=== PATIENT | male | born 1940 | race Caucasian/White ===

== ENCOUNTER 2017-02-14 14:26 | Observation (INO) ==
[2017-02-14 15:01] LABS: Basophils # 0.1 10*3/uL (0.0-0.2); Basophils % 0.9 % (0.0-0.8); Eosinophils # 0.3 10*3/uL (0.0-0.87); Eosinophils % 5.2 % (0.00-10.9); Hemoglobin 13.3 GM/DL (14.0-18.0); Immature Granulocytes % 0.3 %; Immature Granulocytes Absolute 0.02 #; Mean Corpuscular Hemoglobin 35 PG (27-34); Mean Corpuscular Volume 99.2 FL (87-102); Monocytes # 0.6 10*3/uL (0.11-0.8); Monocytes % 8.7 % (1.7-12.7); Neutrophils # 3.3 10*3/uL (1.4-7.4); Neutrophils % 52.9 % (38.7-73.9); Platelet Count 151 T/CUMM (130-400); Red Blood Count 3.83 MC/CUMM (3.8-5.5); Red Cell Distribution Width 13.1 % (9.3-17.3); White Blood Count 6.3 T/CUMM (4-12)
[2017-02-14 15:35] LABS: Blood Urea Nitrogen 21 MG/DL (7-18); Glucose 255 MG/DL (74-106); Osmolality,Calculated 284.8 MOS/KG (273-304); Potassium 4.3 MMOL/L (3.5-5.1); Sodium 137 MMOL/L (136-145); Troponin I Only < 0.015 NG/ML (0.00-0.045)
[2017-02-14] MEDS ORDERED: ASPIRIN EC 325 MG TABLET PO STA (16:18)
[2017-02-14] MEDS ORDERED: MORPHINE 2 MG/1 ML SYRINGE IV PRN (16:32)
[2017-02-14] MEDS ORDERED: ONDANSETRON 4 MG/2 ML VIAL IV PRN (16:32)
[2017-02-14] MEDS ORDERED: GLUCAGON 1 MG VIAL IM PRN (16:32)
[2017-02-14] MEDS ORDERED: ACETAMINOPHEN 325 MG TABLET PO PRN (16:32)
[2017-02-14] MEDS ORDERED: DEXTROSE 50% 25 GM/50 ML VIAL IV PRN (16:32)
[2017-02-14] MEDS ORDERED: ASPIRIN 325 MG TABLET ONE (16:39)
[2017-02-14] MEDS ORDERED: NITROGLYCERIN SL 0.4 MG TABLET SL PRN (17:05)
[2017-02-14] MEDS ORDERED: MAGNESIUM OXIDE 400 MG TABLET PO SCH (21:00)
[2017-02-14] MEDS ORDERED: FINASTERIDE 5 MG TABLET PO SCH (21:00)
[2017-02-14] MEDS ORDERED: PREGABALIN 75 MG CAPSULE PO SCH (21:00)
[2017-02-14] MEDS ORDERED: TAMSULOSIN 0.4 MG CAPSULE PO SCH (21:00)
[2017-02-14] MEDS ORDERED: SIMVASTATIN 20 MG TABLET PO SCH (21:00)
[2017-02-14] MEDS: PANTOPRAZOLE 40 MG TABLET PO SCH (21:37)
[2017-02-14] MEDS: DABIGATRAN 75 MG CAPSULE PO SCH (21:37)
[2017-02-14] MEDS: INSULIN REGULAR 100 UNIT/ML SUBCUT SCH (21:38)
[2017-02-14] MEDS: SODIUM CHLORIDE 0.9% 1,000 ML IV SCH (21:39)
[2017-02-15 04:58] LABS: Basophils % 0.6 % (0.0-0.8); Eosinophils # 0.5 10*3/uL (0.0-0.87); Hematocrit 35.8 VOL% (42.0-52.0); Hemoglobin 12.3 GM/DL (14.0-18.0); Immature Granulocytes % 0.3 %; Immature Granulocytes Absolute 0.02 #; Lymphocytes # 2.6 10*3/uL (1.4-4.0); Lymphocytes % 39.9 % (21.2-54.2); Mean Corpuscular HGB Conc 34.4 GM/DL (32-36); Mean Corpuscular Hemoglobin 34 PG (27-34); Mean Corpuscular Volume 99.2 FL (87-102); Mean Platelet Volume 11.5 FL (9.6-12.0); Monocytes # 0.6 10*3/uL (0.11-0.8); Monocytes % 9.7 % (1.7-12.7); Neutrophils # 2.7 10*3/uL (1.4-7.4); Neutrophils % 42.5 % (38.7-73.9); Platelet Count 150 T/CUMM (130-400); Red Blood Count 3.61 MC/CUMM (3.8-5.5); Red Cell Distribution Width 13.1 % (9.3-17.3); White Blood Count 6.4 T/CUMM (4-12)
[2017-02-15 05:17] LABS: Partial Thromboplastin Time 26.3 SECS (0-40)
[2017-02-15 05:34] LABS: Calcium 8.2 MG/DL (8.5-10.1); Magnesium 2.1 MG/DL (1.8-2.4); Osmolality,Calculated 288.1 MOS/KG (273-304); Potassium 3.9 MMOL/L (3.5-5.1); Risk Ratio 3.51; Thyroid Stimulating Hormone 1.05 uIU/ml (0.358-3.74); VLDL CHOLESTEROL 63.6 MG/DL
[2017-02-15] MEDS: SODIUM CHLORIDE 0.9% 1,000 ML IV SCH (05:50)
[2017-02-15] MEDS ORDERED: CALCIUM (CARBONATE) 500 MG TABLET PO SCH (09:00)
[2017-02-15] MEDS ORDERED: FEXOFENADINE 180 MG TABLET PO SCH (09:00)
[2017-02-15] MEDS ORDERED: BUMETANIDE 1 MG TABLET PO SCH (09:00)
[2017-02-15] MEDS ORDERED: POTASSIUM CHLORIDE 10 MEQ TABLET PO SCH (09:00)
[2017-02-15] MEDS ORDERED: PSYLLIUM POWDER 3.7 GM/PACK PO SCH (09:00)
[2017-02-15] MEDS ORDERED: PANTOPRAZOLE 40 MG TABLET PO SCH (09:00)
[2017-02-15] MEDS ORDERED: MAGNESIUM OXIDE 400 MG TABLET PO SCH (09:00)
[2017-02-15] MEDS ORDERED: ASPIRIN EC 81 MG TABLET PO SCH (09:00)
[2017-02-15] MEDS: DABIGATRAN 75 MG CAPSULE PO SCH (10:30)
[2017-02-15] MEDS: PANTOPRAZOLE 40 MG TABLET PO SCH (10:32)
[2017-02-15] MEDS: INSULIN REGULAR 100 UNIT/ML SUBCUT SCH ×3 (10:32→17:57)
[2017-02-15 16:37] VITALS: BP 102/61
[2017-02-15] MEDS ORDERED: ALUMINUM/MAGNES/SIMETH MAX STR 30 ML UDCUP PO PRN (16:40)
[2017-02-15] MEDS ORDERED: OMEGA 3 ACID ETHYL ESTERS 1 GM CAPSULE PO SCH (21:00)
[2017-02-16] MEDS ORDERED: ISOSORBIDE MONONITRATE 30 MG TABLET PO SCH (09:00)
== END 2017-02-15 18:25 | disposition home or self-care (01) ==
LOC: N.EDINP 14:26 → N.ED 14:26 → N.TELES 17:11
PROVIDERS: ADMIT Hospitalist; ATTEND Hospitalist

== ENCOUNTER 2017-02-28 16:05 | Observation (INO) ==
[2017-02-28] MEDS ORDERED: ASPIRIN 325 MG TABLET PO STA (16:50)
[2017-02-28] MEDS ORDERED: SODIUM CHLORIDE 0.9% 500 ML IV STA (16:50)
[2017-02-28] MEDS ORDERED: ASPIRIN 325 MG TABLET ONE (17:15)
[2017-02-28 17:21] LABS: Basophils # 0.1 10*3/uL (0.0-0.2); Basophils % 0.8 % (0.0-0.8); Eosinophils # 0.4 10*3/uL (0.0-0.87); Eosinophils % 7.2 % (0.00-10.9); Hematocrit 37.5 VOL% (42.0-52.0); Hemoglobin 12.9 GM/DL (14.0-18.0); Immature Granulocytes % 0.2 %; Immature Granulocytes Absolute 0.01 #; Lymphocytes # 2.3 10*3/uL (1.4-4.0); Lymphocytes % 38.6 % (21.2-54.2); Mean Corpuscular HGB Conc 34.4 GM/DL (32-36); Mean Corpuscular Hemoglobin 35 PG (27-34); Mean Corpuscular Volume 100.3 FL (87-102); Mean Platelet Volume 10.6 FL (9.6-12.0); Monocytes # 0.6 10*3/uL (0.11-0.8); Monocytes % 9.3 % (1.7-12.7); Neutrophils # 2.6 10*3/uL (1.4-7.4); Neutrophils % 43.9 % (38.7-73.9); Platelet Count 162 T/CUMM (130-400); Red Blood Count 3.74 MC/CUMM (3.8-5.5); Red Cell Distribution Width 13.9 % (9.3-17.3)
[2017-02-28 17:30] LABS: INR 1.1; PT Patient Result 11.6 SECS; Partial Thromboplastin Time 30.1 SECS (0-40)
[2017-02-28 17:43] LABS: Apearance,Urine CLEAR (Clear); Bilirubin,Urine Negative (Negative); Blood, Urine Negative (Negative); Glucose,Urine (UA) Negative (Negative); Hyaline Casts,Urine 9 /LPF (0-3); Ketones,Urine Negative (Negative); Mucus,Urine Occasional /LPF (Occasional); Nitrite,Urine Negative (Negative); Protein,Urine Negative; RBC,Urine <1 /HPF (0-4); Urine Color Yellow (Yellow); Urine Specific Gravity 1.009 (1.001-1.035); Urine Urobilinogen < 2.0 EU/DL (0.2-1.0); WBC,Urine <1 /HPF (0-6)
[2017-02-28 17:52] LABS: Barbiturates Screen,Urine Negative (Negative); Benzodiazepines Screen,Urine Negative (Negative); Cannabinoid Screen,Urine Negative (Negative); Opiate Screen,Urine Negative (Negative); Phencyclidine Screen,Urine Negative (Negative)
[2017-02-28 18:00] LABS: Alanine Aminotransferase 22 U/L (16-61); Albumin 3.4 G/DL (3.4-5.0); Alkaline Phosphatase 56 U/L (45-117); Aspartate Amino Transferase 20 U/L (0-37); Blood Urea Nitrogen 17 MG/DL (7-18); Calcium 8.9 MG/DL (8.5-10.1); Glucose 123 MG/DL (74-106); Potassium 4.3 MMOL/L (3.5-5.1); Sodium 143 MMOL/L (136-145); Total Protein 6.4 G/DL (6.4-8.3); Troponin I Only < 0.015 NG/ML (0.00-0.045)
[2017-02-28] MEDS ORDERED: ONDANSETRON 4 MG/2 ML VIAL IV PRN (18:41)
[2017-02-28] MEDS ORDERED: GLUCAGON 1 MG VIAL IM PRN (18:41)
[2017-02-28] MEDS ORDERED: DEXTROSE 50% 25 GM/50 ML VIAL IV PRN (18:41)
[2017-02-28] MEDS ORDERED: ALUMINUM/MAGNES/SIMETH MAX STR 30 ML UDCUP PO PRN (18:45)
[2017-02-28] MEDS ORDERED: traMADol 50 MG TABLET PO PRN (18:45)
[2017-02-28] MEDS ORDERED: NITROGLYCERIN SL 0.4 MG TABLET SL PRN (18:45)
[2017-02-28] MEDS: PREGABALIN 75 MG CAPSULE PO SCH (21:08)
[2017-02-28] MEDS: MAGNESIUM OXIDE 400 MG TABLET PO SCH (21:08)
[2017-02-28] MEDS: DABIGATRAN 75 MG CAPSULE PO SCH (21:08)
[2017-02-28] MEDS: FINASTERIDE 5 MG TABLET PO SCH (21:08)
[2017-02-28] MEDS: TAMSULOSIN 0.4 MG CAPSULE PO SCH (21:08)
[2017-02-28] MEDS: SIMVASTATIN 20 MG TABLET PO SCH (21:08)
[2017-02-28] MEDS: INSULIN REGULAR 100 UNIT/ML SUBCUT SCH (21:09)
[2017-02-28] MEDS: INSULIN NPH/REGULAR 70/30 100 UNIT/ML SUBCUT SCH (21:09)
[2017-02-28] MEDS: PANTOPRAZOLE 40 MG TABLET PO SCH (21:09)
[2017-02-28] MEDS: OMEGA 3 ACID ETHYL ESTERS 1 GM CAPSULE PO SCH (21:15)
[2017-02-28] MEDS: SODIUM CHLORIDE 0.9% 1,000 ML IV SCH (21:17)
[2017-03-01 04:43] LABS: Calcium 8.3 MG/DL (8.5-10.1); Osmolality,Calculated 290.6 MOS/KG (273-304); Potassium 4.4 MMOL/L (3.5-5.1); Risk Ratio 2.74
[2017-03-01] MEDS: SODIUM CHLORIDE 0.9% 1,000 ML IV SCH ×2 (04:53→17:21)
[2017-03-01] MEDS: INSULIN REGULAR 100 UNIT/ML SUBCUT SCH ×4 (09:03→21:26)
[2017-03-01] MEDS: MULTIVITAMIN (CENTRUM) TABLET PO SCH (09:40)
[2017-03-01] MEDS: ASPIRIN EC 81 MG TABLET PO SCH (09:40)
[2017-03-01] MEDS: ISOSORBIDE MONONITRATE 30 MG TABLET PO SCH (09:40)
[2017-03-01] MEDS: OMEGA 3 ACID ETHYL ESTERS 1 GM CAPSULE PO SCH ×2 (09:40→21:25)
[2017-03-01] MEDS: PREGABALIN 75 MG CAPSULE PO SCH ×2 (09:40→21:25)
[2017-03-01] MEDS: FEXOFENADINE 180 MG TABLET PO SCH (09:40)
[2017-03-01] MEDS: BUMETANIDE 1 MG TABLET PO SCH (09:40)
[2017-03-01] MEDS: POTASSIUM CHLORIDE 10 MEQ TABLET PO SCH (09:41)
[2017-03-01] MEDS: MAGNESIUM OXIDE 400 MG TABLET PO SCH ×2 (09:41→21:25)
[2017-03-01] MEDS: DABIGATRAN 75 MG CAPSULE PO SCH (09:41)
[2017-03-01] MEDS: CALCIUM (CARBONATE) 500 MG TABLET PO SCH (09:42)
[2017-03-01] MEDS: PSYLLIUM POWDER 3.7 GM/PACK PO SCH (09:42)
[2017-03-01] MEDS: INSULIN NPH/REGULAR 70/30 100 UNIT/ML SUBCUT SCH ×2 (09:42→18:19)
[2017-03-01] MEDS: PANTOPRAZOLE 40 MG TABLET PO SCH ×2 (10:07→21:28)
[2017-03-01] MEDS: FINASTERIDE 5 MG TABLET PO SCH (21:25)
[2017-03-01] MEDS: DABIGATRAN 150 MG CAPSULE PO SCH (21:26)
[2017-03-01] MEDS: SIMVASTATIN 20 MG TABLET PO SCH (21:26)
[2017-03-01] MEDS: TAMSULOSIN 0.4 MG CAPSULE PO SCH (21:26)
[2017-03-02] MEDS: CALCIUM (CARBONATE) 500 MG TABLET PO SCH (09:09)
[2017-03-02] MEDS: DABIGATRAN 150 MG CAPSULE PO SCH (09:09)
[2017-03-02] MEDS: ISOSORBIDE MONONITRATE 30 MG TABLET PO SCH (09:09)
[2017-03-02] MEDS: FEXOFENADINE 180 MG TABLET PO SCH (09:09)
[2017-03-02] MEDS: POTASSIUM CHLORIDE 10 MEQ TABLET PO SCH (09:10)
[2017-03-02] MEDS: PSYLLIUM POWDER 3.7 GM/PACK PO SCH (09:10)
[2017-03-02] MEDS: OMEGA 3 ACID ETHYL ESTERS 1 GM CAPSULE PO SCH (09:10)
[2017-03-02] MEDS: ASPIRIN EC 81 MG TABLET PO SCH (09:10)
[2017-03-02] MEDS: MULTIVITAMIN (CENTRUM) TABLET PO SCH (09:10)
[2017-03-02] MEDS: PREGABALIN 75 MG CAPSULE PO SCH (09:10)
[2017-03-02] MEDS: BUMETANIDE 1 MG TABLET PO SCH (09:10)
[2017-03-02] MEDS: MAGNESIUM OXIDE 400 MG TABLET PO SCH (09:10)
[2017-03-02] MEDS: INSULIN REGULAR 100 UNIT/ML SUBCUT SCH ×2 (09:10→12:56)
[2017-03-02] MEDS: INSULIN NPH/REGULAR 70/30 100 UNIT/ML SUBCUT SCH (09:11)
[2017-03-02] MEDS: PANTOPRAZOLE 40 MG TABLET PO SCH (09:48)
[2017-03-02 11:34] VITALS: BP 116/67
== END 2017-03-02 13:12 | disposition home or self-care (01) ==
LOC: N.ED 16:05 → N.EDINP 16:05 → SUATTDRO 18:41 → N.TELES 19:44
PROVIDERS: ADMIT Pediatrics; ATTEND Internal Medicine

== ENCOUNTER 2017-12-13 12:51 | Observation (INO) ==
[2017-12-13] MEDS ORDERED: ONDANSETRON 4 MG/2 ML VIAL IV PRN ×2 (13:04→15:51)
[2017-12-13] MEDS ORDERED: MORPHINE 4 MG/1 ML VIAL IV PRN (13:04)
[2017-12-13] MEDS ORDERED: ASPIRIN 325 MG TABLET PO STA (13:04)
[2017-12-13] MEDS ORDERED: ENOXAPARIN 100 MG/ML SYRINGE SUBCUT STA (13:04)
[2017-12-13] MEDS ORDERED: SODIUM CHLORIDE 0.9% 500 ML IV STA (13:10)
[2017-12-13 13:43] LABS: Basophils % 0.4 % (0.0-0.8); Eosinophils # 0.1 10*3/uL (0.0-0.87); Eosinophils % 1.4 % (0.00-10.9); Hematocrit 40.1 VOL% (42.0-52.0); Hemoglobin 13.5 GM/DL (14.0-18.0); Immature Granulocytes % 0.1 %; Immature Granulocytes Absolute 0.01 #; Lymphocytes # 2.3 10*3/uL (1.4-4.0); Lymphocytes % 30.5 % (21.2-54.2); Mean Corpuscular HGB Conc 33.7 GM/DL (32-36); Mean Corpuscular Hemoglobin 34 PG (27-34); Mean Corpuscular Volume 100.5 FL (87-102); Mean Platelet Volume 11.2 FL (9.6-12.0); Monocytes # 0.7 10*3/uL (0.11-0.8); Monocytes % 9.6 % (1.7-12.7); Neutrophils # 4.5 10*3/uL (1.4-7.4); Platelet Count 142 T/CUMM (130-400); Red Blood Count 3.99 MC/CUMM (3.8-5.5); Red Cell Distribution Width 13.3 % (9.3-17.3); White Blood Count 7.7 T/CUMM (4-12)
[2017-12-13 13:54] LABS: INR 1.2; PT Patient Result 12.5 SECS; Partial Thromboplastin Time 34.2 SECS (0-40)
[2017-12-13 14:08] LABS: Albumin 3.8 G/DL (3.4-5.0); Bilirubin,Total 0.7 MG/DL (0.2-1.0); Calcium 9.2 MG/DL (8.5-10.1); Osmolality,Calculated 287.8 MOS/KG (273-304); Potassium 4.2 MMOL/L (3.5-5.1); Total Protein 6.9 G/DL (6.4-8.3)
[2017-12-13] MEDS ORDERED: DEXTROSE 50% 25 GM/50 ML VIAL IV PRN (15:51)
[2017-12-13] MEDS ORDERED: GLUCAGON 1 MG VIAL IM PRN (15:51)
[2017-12-13] MEDS ORDERED: ACETAMINOPHEN 325 MG TABLET PO PRN (15:51)
[2017-12-13] MEDS: methylPREDNISolone SOD SUC 40 MG/1 ML VIAL IV SCH (16:15)
[2017-12-13] MEDS: SODIUM CHLORIDE 0.9% 1,000 ML IV SCH (16:39)
[2017-12-13] MEDS: INSULIN LISPRO 100 UNIT/ML SUBCUT SCH ×2 (16:39→21:21)
[2017-12-13] MEDS ORDERED: traMADol 50 MG TABLET PO PRN (17:00)
[2017-12-13] MEDS ORDERED: NITROGLYCERIN SL 0.4 MG TABLET SL PRN (17:00)
[2017-12-13] MEDS ORDERED: ALUMINUM/MAGNES/SIMETH MAX STR 30 ML UDCUP PO PRN (17:00)
[2017-12-13] MEDS: ACETAMINOPHEN 325 MG TABLET PO SCH ×2 (18:56→21:21)
[2017-12-13] MEDS ORDERED: MAGNESIUM OXIDE 400 MG TABLET PO SCH (21:00)
[2017-12-13] MEDS ORDERED: TAMSULOSIN 0.4 MG CAPSULE PO SCH (21:00)
[2017-12-13] MEDS ORDERED: INSULIN NPH/REGULAR 70/30 100 UNIT/ML SUBCUT SCH (21:00)
[2017-12-13] MEDS ORDERED: FINASTERIDE 5 MG TABLET PO SCH (21:00)
[2017-12-13] MEDS ORDERED: SIMVASTATIN 20 MG TABLET PO SCH (21:00)
[2017-12-13] MEDS: OMEGA 3 ACID ETHYL ESTERS 1 GM CAPSULE PO SCH (21:20)
[2017-12-13] MEDS: DOCUSATE SODIUM 100 MG CAPSULE PO SCH (21:20)
[2017-12-13] MEDS: PANTOPRAZOLE 40 MG TABLET PO SCH (21:21)
[2017-12-14] MEDS: methylPREDNISolone SOD SUC 40 MG/1 ML VIAL IV SCH (04:02)
[2017-12-14 04:17] LABS: Troponin I < 0.015 NG/ML (0.00-0.045)
[2017-12-14] MEDS: SODIUM CHLORIDE 0.9% 1,000 ML IV SCH (05:54)
[2017-12-14] MEDS: OMEGA 3 ACID ETHYL ESTERS 1 GM CAPSULE PO SCH (08:34)
[2017-12-14] MEDS: DOCUSATE SODIUM 100 MG CAPSULE PO SCH (08:35)
[2017-12-14] MEDS: INSULIN LISPRO 100 UNIT/ML SUBCUT SCH ×2 (08:36→11:51)
[2017-12-14] MEDS: ACETAMINOPHEN 325 MG TABLET PO SCH (08:36)
[2017-12-14] MEDS: PSYLLIUM POWDER 3.7 GM/PACK PO SCH ×2 (08:36→08:43)
[2017-12-14] MEDS ORDERED: FEXOFENADINE 180 MG TABLET PO SCH (09:00)
[2017-12-14] MEDS ORDERED: PANTOPRAZOLE 40 MG TABLET PO SCH (09:00)
[2017-12-14] MEDS ORDERED: POTASSIUM CHLORIDE 10 MEQ TABLET PO SCH (09:00)
[2017-12-14] MEDS ORDERED: MAGNESIUM OXIDE 400 MG TABLET PO SCH (09:00)
[2017-12-14] MEDS ORDERED: INSULIN NPH/REGULAR 70/30 100 UNIT/ML SUBCUT SCH (09:00)
[2017-12-14] MEDS ORDERED: PREGABALIN 75 MG CAPSULE PO SCH (09:00)
[2017-12-14] MEDS ORDERED: MULTIVITAMIN (CENTRUM) TABLET PO SCH (09:00)
[2017-12-14] MEDS ORDERED: ISOSORBIDE MONONITRATE 30 MG TABLET PO SCH (09:00)
[2017-12-14] MEDS ORDERED: BUMETANIDE 1 MG TABLET PO SCH (09:00)
[2017-12-14] MEDS ORDERED: CALCIUM (CARBONATE) 500 MG TABLET PO SCH (09:00)
[2017-12-14] MEDS ORDERED: ASPIRIN EC 81 MG TABLET PO SCH (09:00)
[2017-12-14] MEDS ORDERED: DABIGATRAN 75 MG CAPSULE PO SCH (09:00)
[2017-12-14] MEDS: PANTOPRAZOLE 40 MG TABLET PO SCH (09:09)
[2017-12-14 09:13] LABS: Calcium 8.4 MG/DL (8.5-10.1); Osmolality,Calculated 293.4 MOS/KG (273-304); Potassium 4.6 MMOL/L (3.5-5.1)
[2017-12-14 12:03] VITALS: BP 91/50
== END 2017-12-14 15:38 | disposition home or self-care (01) ==
LOC: EDUNIT# → EDBD → N.EDINP 12:51 → N.ED 12:51 → N.TELES 15:15
PROVIDERS: ADMIT Family Medicine; ATTEND Family Medicine

== ENCOUNTER 2018-01-06 14:33 | Inpatient (IN) ==
[2018-01-06] MEDS ORDERED: GLUCAGON 1 MG VIAL IM PRN (15:07)
[2018-01-06] MEDS ORDERED: ACETAMINOPHEN 325 MG TABLET PO PRN (15:07)
[2018-01-06] MEDS ORDERED: DEXTROSE 50% 25 GM/50 ML VIAL IV PRN (15:07)
[2018-01-06] MEDS ORDERED: ONDANSETRON 4 MG/2 ML VIAL IV PRN (15:07)
[2018-01-06 16:50] LABS: Basophils % 0.4 % (0.0-0.8); Eosinophils # 0.4 10*3/uL (0.0-0.87); Eosinophils % 4.7 % (0.00-10.9); Hematocrit 43.2 VOL% (42.0-52.0); Hemoglobin 14.1 GM/DL (14.0-18.0); Immature Granulocytes % 0.5 %; Immature Granulocytes Absolute 0.04 #; Lymphocytes # 1.9 10*3/uL (1.4-4.0); Lymphocytes % 24.8 % (21.2-54.2); Mean Corpuscular HGB Conc 32.6 GM/DL (32-36); Mean Corpuscular Hemoglobin 34 PG (27-34); Mean Corpuscular Volume 103.3 FL (87-102); Monocytes # 0.8 10*3/uL (0.11-0.8); Monocytes % 10.1 % (1.7-12.7); Neutrophils # 4.6 10*3/uL (1.4-7.4); Neutrophils % 59.5 % (38.7-73.9); Platelet Count 156 T/CUMM (130-400); Red Blood Count 4.18 MC/CUMM (3.8-5.5); Red Cell Distribution Width 13.5 % (9.3-17.3); White Blood Count 7.7 T/CUMM (4-12)
[2018-01-06] MEDS: methylPREDNISolone SOD SUC 40 MG/1 ML VIAL IV SCH (17:12)
[2018-01-06] MEDS: SODIUM CHLORIDE 0.9% 1,000 ML IV SCH (17:12)
[2018-01-06 17:18] LABS: Albumin 3.1 G/DL (3.4-5.0); Bilirubin,Total 0.4 MG/DL (0.2-1.0); Calcium 8.7 MG/DL (8.5-10.1); Osmolality,Calculated 283.5 MOS/KG (273-304); Total Protein 6.5 G/DL (6.4-8.3)
[2018-01-06 17:20] LABS: Troponin I < 0.015 NG/ML (0.00-0.045)
[2018-01-06] MEDS: INSULIN LISPRO 100 UNIT/ML SUBCUT SCH ×2 (17:21→21:28)
[2018-01-06] MEDS: ALBUTEROL/IPRATROPIUM 3 ML NEB RESP TX SCH ×2 (19:23→23:23)
[2018-01-06 20:07] LABS: Apearance,Urine CLEAR (Clear); Bilirubin,Urine Negative (Negative); Blood, Urine Negative (Negative); Glucose,Urine (UA) Negative (Negative); Ketones,Urine Negative (Negative); Mucus,Urine Occasional /LPF (Occasional); Nitrite,Urine Negative (Negative); Protein,Urine Negative; Urine Color Straw (Yellow); Urine Specific Gravity 1.005 (1.001-1.035); Urine Urobilinogen < 2.0 EU/DL (0.2-1.0); WBC,Urine <1 /HPF (0-6)
[2018-01-06] MEDS: DABIGATRAN 150 MG CAPSULE PO SCH (21:27)
[2018-01-06] MEDS: PREGABALIN 75 MG CAPSULE PO SCH (21:27)
[2018-01-06] MEDS: DOCUSATE SODIUM 100 MG CAPSULE PO SCH (21:27)
[2018-01-06] MEDS: SIMVASTATIN 20 MG TABLET PO SCH (21:28)
[2018-01-07] MEDS ORDERED: ALBUTEROL/IPRATROPIUM 3 ML NEB RESP TX ONE (00:34)
[2018-01-07] MEDS: BENZONATATE 100 MG CAPSULE PO PRN (00:38)
[2018-01-07] MEDS: ALBUTEROL/IPRATROPIUM 3 ML NEB RESP TX SCH ×5 (03:07→20:38)
[2018-01-07] MEDS: NITROGLYCERIN SL 0.4 MG TABLET SL PRN ×2 (04:15→04:20)
[2018-01-07] MEDS: methylPREDNISolone SOD SUC 40 MG/1 ML VIAL IV SCH ×2 (04:24→16:00)
[2018-01-07 04:33] LABS: Basophils % 0.1 % (0.0-0.8); Hematocrit 41.9 VOL% (42.0-52.0); Hemoglobin 13.7 GM/DL (14.0-18.0); Immature Granulocytes Absolute 0.09 #; Lymphocytes # 0.7 10*3/uL (1.4-4.0); Lymphocytes % 7.4 % (21.2-54.2); Mean Corpuscular HGB Conc 32.7 GM/DL (32-36); Mean Corpuscular Hemoglobin 34 PG (27-34); Mean Corpuscular Volume 102.9 FL (87-102); Mean Platelet Volume 11.4 FL (9.6-12.0); Monocytes # 0.3 10*3/uL (0.11-0.8); Monocytes % 3.6 % (1.7-12.7); Neutrophils # 8.3 10*3/uL (1.4-7.4); Neutrophils % 87.9 % (38.7-73.9); Platelet Count 161 T/CUMM (130-400); Red Blood Count 4.07 MC/CUMM (3.8-5.5); Red Cell Distribution Width 13.5 % (9.3-17.3); White Blood Count 9.4 T/CUMM (4-12)
[2018-01-07] MEDS: SODIUM CHLORIDE 0.9% 1,000 ML IV SCH ×3 (05:00→18:53)
[2018-01-07 08:59] LABS: Calcium 8.7 MG/DL (8.5-10.1); Osmolality,Calculated 295.7 MOS/KG (273-304); Potassium 4.1 MMOL/L (3.5-5.1)
[2018-01-07] MEDS ORDERED: BUMETANIDE 1 MG TABLET PO SCH (09:00)
[2018-01-07] MEDS ORDERED: DILTIAZEM 50 MG/10 ML VIAL IV ONE (09:05)
[2018-01-07] MEDS ORDERED: DILTIAZEM 25 MG/5 ML VIAL IV ONE (09:14)
[2018-01-07] MEDS: ASPIRIN EC 81 MG TABLET PO SCH (09:26)
[2018-01-07] MEDS: ISOSORBIDE MONONITRATE 30 MG TABLET PO SCH (09:27)
[2018-01-07] MEDS: DABIGATRAN 150 MG CAPSULE PO SCH ×2 (09:27→21:52)
[2018-01-07] MEDS: PANTOPRAZOLE 40 MG TABLET PO SCH (09:28)
[2018-01-07] MEDS: FEXOFENADINE 180 MG TABLET PO SCH (09:28)
[2018-01-07] MEDS: INSULIN NPH/REGULAR 70/30 100 UNIT/ML SUBCUT SCH (09:28)
[2018-01-07] MEDS: DOCUSATE SODIUM 100 MG CAPSULE PO SCH ×2 (09:28→21:50)
[2018-01-07] MEDS: MULTIVITAMIN (CENTRUM) TABLET PO SCH (09:28)
[2018-01-07] MEDS: INSULIN LISPRO 100 UNIT/ML SUBCUT SCH ×4 (09:29→21:50)
[2018-01-07 11:35] LABS: Troponin I 0.133 NG/ML (0.00-0.045)
[2018-01-07] MEDS ORDERED: POTASSIUM CHLORIDE RIDER 10 MEQ in PREMIX 1 EACH IV PRN (12:49)
[2018-01-07] MEDS ORDERED: DIAZEPAM 5 MG TABLET PO ONE (12:49)
[2018-01-07] MEDS ORDERED: diphenhydrAMINE CAP 25 MG CAPSULE PO ONE (12:49)
[2018-01-07] MEDS ORDERED: MAGNESIUM SULF RIDER 2 GM in PREMIX 1 EACH IV PRN (12:49)
[2018-01-07] MEDS ORDERED: ASPIRIN CHEW 81 MG TABLET PO ONE (12:52)
[2018-01-07] MEDS ORDERED: SODIUM CHLORIDE 0.9% 1,000 ML IV SCH ×2 (13:00→13:36)
[2018-01-07 18:43] LABS: CKMB % 6.3 %
[2018-01-07 18:47] LABS: Troponin I 0.69 NG/ML (0.00-0.045)
[2018-01-07] MEDS: SIMVASTATIN 20 MG TABLET PO SCH (21:50)
[2018-01-07] MEDS: PREGABALIN 75 MG CAPSULE PO SCH (21:50)
[2018-01-08] MEDS: ALBUTEROL/IPRATROPIUM 3 ML NEB RESP TX SCH ×6 (00:07→22:43)
[2018-01-08] MEDS: ATENOLOL 25 MG TABLET PO SCH ×3 (00:30→21:45)
[2018-01-08 03:43] LABS: Basophils % 0.2 % (0.0-0.8); Eosinophils % 0.1 % (0.00-10.9); Hematocrit 33.6 VOL% (42.0-52.0); Hemoglobin 11.2 GM/DL (14.0-18.0); Immature Granulocytes Absolute 0.16 #; Lymphocytes # 1.3 10*3/uL (1.4-4.0); Lymphocytes % 7.9 % (21.2-54.2); Mean Corpuscular HGB Conc 33.3 GM/DL (32-36); Mean Corpuscular Hemoglobin 34 PG (27-34); Mean Corpuscular Volume 101.5 FL (87-102); Mean Platelet Volume 10.9 FL (9.6-12.0); Monocytes # 1.1 10*3/uL (0.11-0.8); Monocytes % 6.8 % (1.7-12.7); Neutrophils # 13.6 10*3/uL (1.4-7.4); Platelet Count 138 T/CUMM (130-400); Red Blood Count 3.31 MC/CUMM (3.8-5.5); Red Cell Distribution Width 14.1 % (9.3-17.3); White Blood Count 16.2 T/CUMM (4-12)
[2018-01-08 04:25] LABS: Calcium 8.4 MG/DL (8.5-10.1); Osmolality,Calculated 295.5 MOS/KG (273-304)
[2018-01-08 04:30] LABS: Risk Ratio 2.18
[2018-01-08 04:32] LABS: CKMB % 6.7 %
[2018-01-08 04:35] LABS: Troponin I 0.702 NG/ML (0.00-0.045)
[2018-01-08] MEDS: SODIUM CHLORIDE 0.9% 1,000 ML IV SCH ×3 (04:38→18:11)
[2018-01-08] MEDS ORDERED: ATENOLOL 25 MG TABLET PO SCH (09:00)
[2018-01-08] MEDS: ASPIRIN EC 81 MG TABLET PO SCH (09:20)
[2018-01-08] MEDS: DOCUSATE SODIUM 100 MG CAPSULE PO SCH ×2 (09:20→21:45)
[2018-01-08] MEDS: PANTOPRAZOLE 40 MG TABLET PO SCH (09:21)
[2018-01-08] MEDS: FEXOFENADINE 180 MG TABLET PO SCH (09:21)
[2018-01-08] MEDS: ISOSORBIDE MONONITRATE 30 MG TABLET PO SCH (09:21)
[2018-01-08] MEDS: MULTIVITAMIN (CENTRUM) TABLET PO SCH (09:21)
[2018-01-08] MEDS: INSULIN NPH/REGULAR 70/30 100 UNIT/ML SUBCUT SCH (09:22)
[2018-01-08] MEDS: INSULIN LISPRO 100 UNIT/ML SUBCUT SCH ×4 (09:22→21:57)
[2018-01-08] MEDS: methylPREDNISolone SOD SUC 40 MG/1 ML VIAL IV SCH ×2 (09:45→21:47)
[2018-01-08] MEDS: BENZONATATE 100 MG CAPSULE PO PRN (18:51)
[2018-01-08] MEDS: SIMVASTATIN 20 MG TABLET PO SCH (21:46)
[2018-01-08] MEDS: PREGABALIN 75 MG CAPSULE PO SCH (21:46)
[2018-01-09] MEDS: ALBUTEROL/IPRATROPIUM 3 ML NEB RESP TX SCH ×7 (02:24→23:57)
[2018-01-09 04:25] LABS: Basophils % 0.1 % (0.0-0.8); Hematocrit 37.6 VOL% (42.0-52.0); Hemoglobin 12.5 GM/DL (14.0-18.0); Immature Granulocytes % 2.5 %; Immature Granulocytes Absolute 0.34 #; Lymphocytes # 0.8 10*3/uL (1.4-4.0); Lymphocytes % 5.6 % (21.2-54.2); Mean Corpuscular HGB Conc 33.2 GM/DL (32-36); Mean Corpuscular Hemoglobin 34 PG (27-34); Mean Corpuscular Volume 101.1 FL (87-102); Mean Platelet Volume 10.9 FL (9.6-12.0); Monocytes # 0.3 10*3/uL (0.11-0.8); Neutrophils # 12.4 10*3/uL (1.4-7.4); Neutrophils % 89.8 % (38.7-73.9); Platelet Count 161 T/CUMM (130-400); Red Blood Count 3.72 MC/CUMM (3.8-5.5); Red Cell Distribution Width 14.4 % (9.3-17.3); White Blood Count 13.8 T/CUMM (4-12)
[2018-01-09 04:59] LABS: Calcium 8.6 MG/DL (8.5-10.1); Osmolality,Calculated 300.3 MOS/KG (273-304); Potassium 5.5 MMOL/L (3.5-5.1)
[2018-01-09] MEDS: INSULIN NPH/REGULAR 70/30 100 UNIT/ML SUBCUT SCH (09:04)
[2018-01-09] MEDS: INSULIN LISPRO 100 UNIT/ML SUBCUT SCH ×4 (09:04→21:14)
[2018-01-09] MEDS: methylPREDNISolone SOD SUC 40 MG/1 ML VIAL IV SCH ×2 (09:05→21:14)
[2018-01-09] MEDS: ATENOLOL 25 MG TABLET PO SCH ×2 (09:06→21:13)
[2018-01-09] MEDS: BENZONATATE 100 MG CAPSULE PO PRN ×2 (09:06→18:39)
[2018-01-09] MEDS: DOCUSATE SODIUM 100 MG CAPSULE PO SCH (09:06)
[2018-01-09] MEDS: FEXOFENADINE 180 MG TABLET PO SCH (09:06)
[2018-01-09] MEDS: ISOSORBIDE MONONITRATE 30 MG TABLET PO SCH (09:07)
[2018-01-09] MEDS: PANTOPRAZOLE 40 MG TABLET PO SCH (09:07)
[2018-01-09] MEDS: ASPIRIN EC 81 MG TABLET PO SCH (09:07)
[2018-01-09] MEDS: MULTIVITAMIN (CENTRUM) TABLET PO SCH (09:07)
[2018-01-09] MEDS: MONTELUKAST 10 MG TABLET PO SCH (10:00)
[2018-01-09] MEDS: SODIUM CHLORIDE 0.9% 1,000 ML IV SCH ×2 (11:16→19:07)
[2018-01-09] MEDS ORDERED: ATENOLOL 25 MG TABLET PO ONE (18:56)
[2018-01-09] MEDS: SIMVASTATIN 20 MG TABLET PO SCH (21:13)
[2018-01-09] MEDS: TAMSULOSIN 0.4 MG CAPSULE PO SCH (21:13)
[2018-01-09] MEDS: PREGABALIN 75 MG CAPSULE PO SCH (21:13)
[2018-01-10] MEDS: DOCUSATE SODIUM 100 MG CAPSULE PO SCH ×3 (01:17→21:16)
[2018-01-10 02:54] LABS: Basophils % 0.2 % (0.0-0.8); Hematocrit 36.3 VOL% (42.0-52.0); Hemoglobin 12.3 GM/DL (14.0-18.0); Immature Granulocytes % 3.7 %; Immature Granulocytes Absolute 0.46 #; Lymphocytes # 0.9 10*3/uL (1.4-4.0); Lymphocytes % 6.9 % (21.2-54.2); Mean Corpuscular HGB Conc 33.9 GM/DL (32-36); Mean Corpuscular Hemoglobin 34 PG (27-34); Mean Corpuscular Volume 98.9 FL (87-102); Mean Platelet Volume 10.8 FL (9.6-12.0); Monocytes # 0.6 10*3/uL (0.11-0.8); Monocytes % 4.5 % (1.7-12.7); Neutrophils # 10.7 10*3/uL (1.4-7.4); Neutrophils % 84.7 % (38.7-73.9); Platelet Count 159 T/CUMM (130-400); Red Blood Count 3.67 MC/CUMM (3.8-5.5); Red Cell Distribution Width 14.2 % (9.3-17.3); White Blood Count 12.6 T/CUMM (4-12)
[2018-01-10 03:09] LABS: Calcium 8.8 MG/DL (8.5-10.1); Osmolality,Calculated 292.5 MOS/KG (273-304); Potassium 4.3 MMOL/L (3.5-5.1)
[2018-01-10 03:11] LABS: Calcium 8.9 MG/DL (8.5-10.1); Osmolality,Calculated 294.4 MOS/KG (273-304); Potassium 4.4 MMOL/L (3.5-5.1)
[2018-01-10] MEDS: ALBUTEROL/IPRATROPIUM 3 ML NEB RESP TX SCH ×6 (03:37→23:20)
[2018-01-10] MEDS ORDERED: DIAZEPAM 5 MG TABLET PO ONE ×2 (08:00→13:00)
[2018-01-10] MEDS ORDERED: diphenhydrAMINE CAP 25 MG CAPSULE PO ONE ×2 (08:00→13:00)
[2018-01-10] MEDS: INSULIN LISPRO 100 UNIT/ML SUBCUT SCH ×4 (08:10→21:18)
[2018-01-10] MEDS ORDERED: ASPIRIN CHEW 81 MG TABLET PO ONE (09:02)
[2018-01-10] MEDS ORDERED: MAGNESIUM SULF RIDER 2 GM in PREMIX 1 EACH IV PRN (09:23)
[2018-01-10] MEDS: INSULIN NPH/REGULAR 70/30 100 UNIT/ML SUBCUT SCH (09:23)
[2018-01-10] MEDS ORDERED: POTASSIUM CHLORIDE RIDER 10 MEQ in PREMIX 1 EACH IV PRN (09:23)
[2018-01-10] MEDS: methylPREDNISolone SOD SUC 40 MG/1 ML VIAL IV SCH ×2 (09:45→21:17)
[2018-01-10] MEDS: ISOSORBIDE MONONITRATE 30 MG TABLET PO SCH (10:14)
[2018-01-10] MEDS: PANTOPRAZOLE 40 MG TABLET PO SCH (10:15)
[2018-01-10] MEDS: ATENOLOL 25 MG TABLET PO SCH ×3 (10:15→21:15)
[2018-01-10] MEDS: ASPIRIN EC 81 MG TABLET PO SCH (10:16)
[2018-01-10] MEDS: FEXOFENADINE 180 MG TABLET PO SCH (10:16)
[2018-01-10] MEDS: MULTIVITAMIN (CENTRUM) TABLET PO SCH (10:17)
[2018-01-10] MEDS: MONTELUKAST 10 MG TABLET PO SCH (10:17)
[2018-01-10] MEDS: SODIUM CHLORIDE 0.9% 1,000 ML IV SCH ×2 (13:02→18:57)
[2018-01-10] MEDS ORDERED: MIDAZOLAM 2 MG/2 ML VIAL ONE (13:26)
[2018-01-10] MEDS ORDERED: LIDOCAINE 1% 20 ML VIAL ONE (13:26)
[2018-01-10] MEDS ORDERED: fentaNYL 100 MCG/2 ML VIAL ONE (13:26)
[2018-01-10] MEDS ORDERED: HEPARIN 5,000 UNIT/1 ML VIAL ONE (13:51)
[2018-01-10] MEDS ORDERED: TIROFIBAN 5,000 MCG/100 ML PREMIX IV ONE (14:41)
[2018-01-10] MEDS ORDERED: CLOPIDOGREL 300 MG TABLET ONE (15:11)
[2018-01-10] MEDS ORDERED: TIROFIBAN 5,000 MCG/100 ML PREMIX IV SCH (15:30)
[2018-01-10] MEDS ORDERED: SODIUM CHLORIDE 0.9% 1,000 ML IV SCH (17:16)
[2018-01-10 19:45] LABS: Troponin I 0.177 NG/ML (0.00-0.045)
[2018-01-10] MEDS: TAMSULOSIN 0.4 MG CAPSULE PO SCH (21:14)
[2018-01-10] MEDS: PREGABALIN 75 MG CAPSULE PO SCH (21:16)
[2018-01-10] MEDS: SIMVASTATIN 20 MG TABLET PO SCH (21:17)
[2018-01-10] MEDS: INSULIN NPH/REGULAR 70/30 100 UNIT/ML SUBCUT PRN (21:17)
[2018-01-10] MEDS: BENZONATATE 100 MG CAPSULE PO PRN (21:25)
[2018-01-11 01:41] LABS: Basophils % 0.2 % (0.0-0.8); Eosinophils % 0.1 % (0.00-10.9); Hematocrit 36.6 VOL% (42.0-52.0); Hemoglobin 12.8 GM/DL (14.0-18.0); Immature Granulocytes Absolute 0.23 #; Lymphocytes # 1.3 10*3/uL (1.4-4.0); Lymphocytes % 11.9 % (21.2-54.2); Mean Corpuscular Hemoglobin 34 PG (27-34); Mean Corpuscular Volume 97.6 FL (87-102); Monocytes # 0.9 10*3/uL (0.11-0.8); Monocytes % 7.7 % (1.7-12.7); Neutrophils # 8.8 10*3/uL (1.4-7.4); Neutrophils % 78.1 % (38.7-73.9); Platelet Count 172 T/CUMM (130-400); Red Blood Count 3.75 MC/CUMM (3.8-5.5); Red Cell Distribution Width 13.9 % (9.3-17.3); White Blood Count 11.2 T/CUMM (4-12)
[2018-01-11 02:14] LABS: Albumin 2.7 G/DL (3.4-5.0); Calcium 8.3 MG/DL (8.5-10.1); Osmolality,Calculated 295.8 MOS/KG (273-304); Total Protein 5.6 G/DL (6.4-8.3)
[2018-01-11 02:18] LABS: Calcium 8.7 MG/DL (8.5-10.1); Potassium 4.3 MMOL/L (3.5-5.1)
[2018-01-11 02:23] LABS: Troponin I 0.205 NG/ML (0.00-0.045)
[2018-01-11] MEDS: ALBUTEROL/IPRATROPIUM 3 ML NEB RESP TX SCH ×6 (03:20→23:11)
[2018-01-11] MEDS: methylPREDNISolone SOD SUC 40 MG/1 ML VIAL IV SCH ×2 (08:46→20:10)
[2018-01-11] MEDS: INSULIN NPH/REGULAR 70/30 100 UNIT/ML SUBCUT SCH (09:03)
[2018-01-11] MEDS: INSULIN LISPRO 100 UNIT/ML SUBCUT SCH ×4 (09:09→20:22)
[2018-01-11 09:54] LABS: Troponin I 0.147 NG/ML (0.00-0.045)
[2018-01-11] MEDS: ATENOLOL 25 MG TABLET PO SCH ×3 (10:07→20:42)
[2018-01-11] MEDS: PANTOPRAZOLE 40 MG TABLET PO SCH (10:07)
[2018-01-11] MEDS: FEXOFENADINE 180 MG TABLET PO SCH (10:07)
[2018-01-11] MEDS: CLOPIDOGREL 75 MG TABLET PO SCH (10:07)
[2018-01-11] MEDS: MONTELUKAST 10 MG TABLET PO SCH (10:07)
[2018-01-11] MEDS: ASPIRIN EC 81 MG TABLET PO SCH (10:08)
[2018-01-11] MEDS: ISOSORBIDE MONONITRATE 30 MG TABLET PO SCH (10:08)
[2018-01-11] MEDS: DOCUSATE SODIUM 100 MG CAPSULE PO SCH ×2 (10:08→20:12)
[2018-01-11] MEDS: MULTIVITAMIN (CENTRUM) TABLET PO SCH (10:14)
[2018-01-11 12:28] LABS: Troponin I 0.127 NG/ML (0.00-0.045)
[2018-01-11 14:55] LABS: Troponin I 0.113 NG/ML (0.00-0.045)
[2018-01-11] MEDS: BUDESONIDE/FORMOTEROL 160-4.5 INHALER 6 GM INH SCH ×2 (15:40→20:20)
[2018-01-11] MEDS: TAMSULOSIN 0.4 MG CAPSULE PO SCH (20:11)
[2018-01-11] MEDS: BENZONATATE 100 MG CAPSULE PO PRN (20:11)
[2018-01-11] MEDS: SIMVASTATIN 20 MG TABLET PO SCH (20:12)
[2018-01-11] MEDS: PREGABALIN 75 MG CAPSULE PO SCH (20:12)
[2018-01-11] MEDS: INSULIN NPH/REGULAR 70/30 100 UNIT/ML SUBCUT PRN (20:21)
[2018-01-12] MEDS: ALBUTEROL/IPRATROPIUM 3 ML NEB RESP TX SCH ×3 (03:28→12:54)
[2018-01-12 04:19] LABS: Basophils % 0.1 % (0.0-0.8); Hemoglobin 12.3 GM/DL (14.0-18.0); Immature Granulocytes % 1.8 %; Immature Granulocytes Absolute 0.17 #; Lymphocytes # 1.3 10*3/uL (1.4-4.0); Lymphocytes % 14.2 % (21.2-54.2); Mean Corpuscular HGB Conc 34.2 GM/DL (32-36); Mean Corpuscular Hemoglobin 34 PG (27-34); Mean Corpuscular Volume 98.6 FL (87-102); Mean Platelet Volume 10.7 FL (9.6-12.0); Monocytes # 0.5 10*3/uL (0.11-0.8); Monocytes % 5.6 % (1.7-12.7); Neutrophils # 7.2 10*3/uL (1.4-7.4); Neutrophils % 78.3 % (38.7-73.9); Platelet Count 167 T/CUMM (130-400); Red Blood Count 3.65 MC/CUMM (3.8-5.5); Red Cell Distribution Width 13.8 % (9.3-17.3); White Blood Count 9.2 T/CUMM (4-12)
[2018-01-12 04:51] LABS: Calcium 8.9 MG/DL (8.5-10.1); Osmolality,Calculated 289.4 MOS/KG (273-304)
[2018-01-12] MEDS: CLOPIDOGREL 75 MG TABLET PO SCH (09:16)
[2018-01-12] MEDS: DOCUSATE SODIUM 100 MG CAPSULE PO SCH (09:16)
[2018-01-12] MEDS: BENZONATATE 100 MG CAPSULE PO PRN (09:16)
[2018-01-12] MEDS: ATENOLOL 25 MG TABLET PO SCH (09:16)
[2018-01-12] MEDS: MONTELUKAST 10 MG TABLET PO SCH (09:16)
[2018-01-12] MEDS: MULTIVITAMIN (CENTRUM) TABLET PO SCH (09:16)
[2018-01-12] MEDS: ASPIRIN EC 81 MG TABLET PO SCH (09:16)
[2018-01-12] MEDS: PANTOPRAZOLE 40 MG TABLET PO SCH (09:16)
[2018-01-12] MEDS: ISOSORBIDE MONONITRATE 30 MG TABLET PO SCH (09:17)
[2018-01-12] MEDS: FEXOFENADINE 180 MG TABLET PO SCH (09:17)
[2018-01-12] MEDS: INSULIN NPH/REGULAR 70/30 100 UNIT/ML SUBCUT SCH (09:18)
[2018-01-12] MEDS: INSULIN LISPRO 100 UNIT/ML SUBCUT SCH (09:18)
[2018-01-12] MEDS: BUDESONIDE/FORMOTEROL 160-4.5 INHALER 6 GM INH SCH (09:27)
[2018-01-12] MEDS ORDERED: predniSONE 20 MG TABLET PO SCH (09:30)
[2018-01-12 12:00] VITALS: BP 113/68
[2018-01-12] MEDS ORDERED: ATENOLOL 25 MG TABLET PO SCH (21:00)
== END 2018-01-12 13:20 | disposition home or self-care (01) | DRG 247 ==
LOC: N.2W → N.TELEN 16:18
PROVIDERS: ADMIT Family Medicine; ATTEND Family Medicine

== ENCOUNTER 2020-11-10 19:53 | Inpatient (IN) ==
[2020-11-10 20:26] LABS: Basophils % 0.6 % (0.0-0.8); Eosinophils % 0.6 % (0.00-10.9); Hematocrit 39.3 VOL% (42.0-52.0); Hemoglobin 13.1 GM/DL (14.0-18.0); Immature Granulocytes % 0.2 %; Immature Granulocytes Absolute 0.01 #; Lymphocytes # 1.1 10*3/uL (1.4-4.0); Mean Corpuscular HGB Conc 33.3 GM/DL (32-36); Mean Corpuscular Volume 99.7 FL (87-102); Mean Platelet Volume 11.2 FL (9.6-12.0); Monocytes % 8.7 % (1.7-12.7); Neutrophils % 68.9 % (38.7-73.9); Platelet Count 146 T/CUMM (130-400); Red Blood Count 3.94 MC/CUMM (3.8-5.5); Red Cell Distribution Width 13.6 % (9.3-17.3); White Blood Count 5.4 T/CUMM (4-12)
[2020-11-10 20:38] LABS: INR 1.1; PT Patient Result 12.6 SECS (10.5-12.0)
[2020-11-10 20:39] LABS: Partial Thromboplastin Time 41.8 SECS (23.9-33.8)
[2020-11-10 20:53] LABS: Albumin 3.4 G/DL (3.4-5.0); Bilirubin,Total 0.6 MG/DL (0.20-1.00); Calcium 9.1 MG/DL (8.5-10.1); Osmolality,Calculated 283.4 MOS/KG (273-304); Potassium 4.4 MMOL/L (3.5-5.1); Total Protein 7.3 G/DL (6.4-8.2)
[2020-11-10] MEDS ORDERED: NITROGLYCERIN SL 0.4 MG TABLET SL STA (21:29)
[2020-11-10] MEDS ORDERED: ONDANSETRON 4 MG/2 ML VIAL IM STA (21:29)
[2020-11-10] MEDS ORDERED: ONDANSETRON 4 MG/2 ML VIAL IV STA (21:30)
[2020-11-10 21:38] LABS: Bilirubin,Urine Negative (Negative); Blood, Urine Negative (Negative); Glucose,Urine (UA) >=500 mg/dL (Negative); Hyaline Casts,Urine 9 /LPF (0-3); Ketones,Urine Negative (Negative); Mucus,Urine Occasional /LPF (Occasional); Nitrite,Urine Negative (Negative); Protein,Urine Negative; RBC,Urine 1 /HPF (0-4); Squamous Epithelial Cell,Urine Occasional /HPF (0-10); Urine Appearance CLEAR (Clear); Urine Color Yellow (Yellow); Urine Specific Gravity 1.017 (1.001-1.035); Urine Urobilinogen < 2.0 EU/DL (0.2-1.0)
[2020-11-11] MEDS ORDERED: DEXTROSE 50% 25 GM/50 ML VIAL IV PRN ×2 (00:22)
[2020-11-11] MEDS ORDERED: ONDANSETRON 4 MG/2 ML VIAL IV PRN ×2 (00:22→13:30)
[2020-11-11] MEDS ORDERED: MELATONIN 3 MG TABLET PO PRN (00:22)
[2020-11-11] MEDS ORDERED: ACETAMINOPHEN 325 MG TABLET PO PRN ×2 (00:22→13:30)
[2020-11-11] MEDS ORDERED: GLUCAGON 1 MG VIAL IM PRN (00:22)
[2020-11-11 08:16] LABS: Basophils % 0.4 % (0.0-0.8); Eosinophils % 0.7 % (0.00-10.9); Hematocrit 38.1 VOL% (42.0-52.0); Hemoglobin 12.7 GM/DL (14.0-18.0); Immature Granulocytes % 0.2 %; Immature Granulocytes Absolute 0.01 #; Lymphocytes # 1.9 10*3/uL (1.4-4.0); Lymphocytes % 34.6 % (21.2-54.2); Mean Corpuscular HGB Conc 33.3 GM/DL (32-36); Mean Platelet Volume 11.2 FL (9.6-12.0); Monocytes % 13.4 % (1.7-12.7); Neutrophils % 50.7 % (38.7-73.9); Platelet Count 137 T/CUMM (130-400); Red Blood Count 3.81 MC/CUMM (3.8-5.5); Red Cell Distribution Width 13.6 % (9.3-17.3); White Blood Count 5.6 T/CUMM (4-12)
[2020-11-11 08:30] LABS: Albumin 3.1 G/DL (3.4-5.0); Bilirubin,Total 0.7 MG/DL (0.20-1.00); Calcium 8.6 MG/DL (8.5-10.1); Ferritin 114.4 ng/ml (26-388); Osmolality,Calculated 279.4 MOS/KG (273-304); Potassium 4.3 MMOL/L (3.5-5.1); Total Protein 7.1 G/DL (6.4-8.2)
[2020-11-11] MEDS ORDERED: ENOXAPARIN 40 MG/0.4 ML SYRINGE SUBCUT SCH (09:00)
[2020-11-11] MEDS: INSULIN REGULAR 100 UNIT/ML SUBCUT SCH ×4 (09:35→21:00)
[2020-11-11] MEDS: DEXAMETHASONE 4 MG/1 ML VIAL IV SCH (09:35)
[2020-11-11] MEDS: CHOLECALCIFEROL 1,000 UNIT TABLET PO SCH (09:36)
[2020-11-11] MEDS: ASCORBIC ACID 500 MG TABLET PO SCH ×2 (09:36→21:02)
[2020-11-11] MEDS: FAMOTIDINE 20 MG TABLET PO SCH ×2 (09:36→21:02)
[2020-11-11] MEDS: ZINC GLUCONATE 50 MG TABLET PO SCH (09:36)
[2020-11-11] MEDS: CETIRIZINE 10 MG TABLET PO SCH (09:36)
[2020-11-11] MEDS ORDERED: BUMETANIDE 1 MG TABLET PO SCH (12:30)
[2020-11-11] MEDS ORDERED: DIGOXIN 0.125 MG TABLET PO SCH (12:30)
[2020-11-11] MEDS ORDERED: atenoloL 25 MG TABLET PO SCH (12:30)
[2020-11-11] MEDS ORDERED: DEXAMETHASONE 4 MG TABLET PO ONE (13:30)
[2020-11-11] MEDS ORDERED: methylPREDNISolone SOD SUC 125 MG/2 ML VIAL IV PRN (13:30)
[2020-11-11] MEDS ORDERED: diphenhydrAMINE 50 MG/1 ML VIAL IV PRN ×2 (13:30)
[2020-11-11] MEDS ORDERED: MECLIZINE 25 MG TABLET PO PRN (13:30)
[2020-11-11] MEDS ORDERED: SODIUM CHLORIDE 0.9% 200 ML IV SCH (13:30)
[2020-11-11] MEDS: ASPIRIN 325 MG TABLET PO SCH (13:42)
[2020-11-11] MEDS: PREGABALIN 25 MG CAPSULE PO SCH ×2 (13:44→21:02)
[2020-11-11] MEDS: DABIGATRAN 75 MG CAPSULE PO SCH ×2 (13:51→21:02)
[2020-11-11] MEDS ORDERED: [UNRECOGNIZED DRUG - OTHER] IV ONE (15:00)
[2020-11-11] MEDS: SODIUM CHLORIDE 0.9% 1,000 ML IV SCH (18:07)
[2020-11-11] MEDS: INSULIN GLARGINE 100 UNIT/ML SUBCUT SCH (18:41)
[2020-11-11] MEDS: SIMVASTATIN 20 MG TABLET PO SCH (21:02)
[2020-11-11] MEDS: TAMSULOSIN 0.4 MG CAPSULE PO SCH (21:02)
[2020-11-11] MEDS: FINASTERIDE 5 MG TABLET PO SCH (21:05)
[2020-11-12 05:47] LABS: Basophils % 0.2 % (0.0-0.8); Hematocrit 42.1 VOL% (42.0-52.0); Hemoglobin 14.7 GM/DL (14.0-18.0); Immature Granulocytes % 0.2 %; Immature Granulocytes Absolute 0.02 #; Lymphocytes # 1.6 10*3/uL (1.4-4.0); Lymphocytes % 17.3 % (21.2-54.2); Mean Corpuscular HGB Conc 34.9 GM/DL (32-36); Mean Corpuscular Volume 96.8 FL (87-102); Mean Platelet Volume 11.6 FL (9.6-12.0); Monocytes % 6.3 % (1.7-12.7); Platelet Count 147 T/CUMM (130-400); Red Blood Count 4.35 MC/CUMM (3.8-5.5); Red Cell Distribution Width 12.7 % (9.3-17.3)
[2020-11-12 06:09] LABS: Calcium 9.1 MG/DL (8.5-10.1); Ferritin 144.8 ng/ml (26-388); Osmolality,Calculated 287.1 MOS/KG (273-304); Potassium 4.9 MMOL/L (3.5-5.1)
[2020-11-12] MEDS: SODIUM CHLORIDE 0.9% 1,000 ML IV SCH ×2 (06:21→10:21)
[2020-11-12] MEDS: ASPIRIN 325 MG TABLET PO SCH (09:09)
[2020-11-12] MEDS: FAMOTIDINE 20 MG TABLET PO SCH ×2 (09:09→21:50)
[2020-11-12] MEDS: PREGABALIN 25 MG CAPSULE PO SCH ×2 (09:09→21:50)
[2020-11-12] MEDS: DEXAMETHASONE 4 MG/1 ML VIAL IV SCH (09:10)
[2020-11-12] MEDS: INSULIN REGULAR 100 UNIT/ML SUBCUT SCH ×5 (09:11→21:50)
[2020-11-12] MEDS: AZITHROMYCIN 250 MG TABLET PO SCH (09:17)
[2020-11-12] MEDS: DABIGATRAN 75 MG CAPSULE PO SCH ×2 (09:17→21:50)
[2020-11-12] MEDS: ASCORBIC ACID 500 MG TABLET PO SCH ×2 (09:17→21:50)
[2020-11-12] MEDS: ZINC GLUCONATE 50 MG TABLET PO SCH (09:18)
[2020-11-12] MEDS: CHOLECALCIFEROL 1,000 UNIT TABLET PO SCH (09:18)
[2020-11-12] MEDS: CETIRIZINE 10 MG TABLET PO SCH (09:18)
[2020-11-12] MEDS: SIMVASTATIN 20 MG TABLET PO SCH (21:50)
[2020-11-12] MEDS: INSULIN GLARGINE 100 UNIT/ML SUBCUT SCH (21:50)
[2020-11-12] MEDS: FINASTERIDE 5 MG TABLET PO SCH (21:50)
[2020-11-12] MEDS: TAMSULOSIN 0.4 MG CAPSULE PO SCH (21:50)
[2020-11-13 05:02] LABS: Basophils % 0.1 % (0.0-0.8); Hemoglobin 13.1 GM/DL (14.0-18.0); Immature Granulocytes % 0.4 %; Immature Granulocytes Absolute 0.06 #; Lymphocytes # 1.9 10*3/uL (1.4-4.0); Lymphocytes % 12.4 % (21.2-54.2); Mean Corpuscular HGB Conc 33.6 GM/DL (32-36); Mean Corpuscular Volume 98.7 FL (87-102); Mean Platelet Volume 11.8 FL (9.6-12.0); Monocytes % 4.7 % (1.7-12.7); Neutrophils % 82.4 % (38.7-73.9); Platelet Count 154 T/CUMM (130-400); Red Blood Count 3.95 MC/CUMM (3.8-5.5)
[2020-11-13 05:22] LABS: Calcium 9.2 MG/DL (8.5-10.1); Osmolality,Calculated 294.8 MOS/KG (273-304); Potassium 4.7 MMOL/L (3.5-5.1)
[2020-11-13 05:30] LABS: Ferritin 132.2 ng/ml (26-388)
[2020-11-13] MEDS: AZITHROMYCIN 250 MG TABLET PO SCH (09:54)
[2020-11-13] MEDS: ASCORBIC ACID 500 MG TABLET PO SCH (09:54)
[2020-11-13] MEDS: CHOLECALCIFEROL 1,000 UNIT TABLET PO SCH (09:54)
[2020-11-13] MEDS: ZINC GLUCONATE 50 MG TABLET PO SCH (09:54)
[2020-11-13] MEDS: PREGABALIN 25 MG CAPSULE PO SCH (09:55)
[2020-11-13] MEDS: ASPIRIN 325 MG TABLET PO SCH (09:55)
[2020-11-13] MEDS: DABIGATRAN 75 MG CAPSULE PO SCH (09:55)
[2020-11-13] MEDS: FAMOTIDINE 20 MG TABLET PO SCH (09:55)
[2020-11-13] MEDS: DEXAMETHASONE 4 MG/1 ML VIAL IV SCH (09:55)
[2020-11-13] MEDS: INSULIN REGULAR 100 UNIT/ML SUBCUT SCH ×2 (09:55→12:19)
[2020-11-13] MEDS: CETIRIZINE 10 MG TABLET PO SCH (09:55)
[2020-11-13 11:49] VITALS: BP 143/60
== END 2020-11-13 15:27 | disposition home or self-care (01) | DRG 177 ==
LOC: N.ED 19:53 → N.EDINP 11-11 00:51 → N.2E 11-11 01:48
PROVIDERS: ADMIT Internal Medicine; ATTEND Internal Medicine

== ENCOUNTER 2021-10-10 10:54 | Observation (INO) ==
[2021-10-10 11:25] LABS: Basophils # 0.1 10*3/uL (0.0-0.2); Basophils % 0.7 % (0.0-0.8); Eosinophils # 0.1 10*3/uL (0.0-0.87); Eosinophils % 1.6 % (0.00-10.9); Hematocrit 37.8 VOL% (42.0-52.0); Hemoglobin 12.9 GM/DL (14.0-18.0); Immature Granulocytes % 0.3 %; Immature Granulocytes Absolute 0.02 #; Lymphocytes # 1.9 10*3/uL (1.4-4.0); Lymphocytes % 25.6 % (21.2-54.2); Mean Corpuscular HGB Conc 34.1 GM/DL (32-36); Mean Platelet Volume 11.2 FL (9.6-12.0); Monocytes # 0.7 10*3/uL (0.11-0.8); Monocytes % 9.3 % (1.7-12.7); Neutrophils % 62.5 % (38.7-73.9); Platelet Count 172 T/CUMM (130-400); Red Blood Count 3.78 MC/CUMM (3.8-5.5); Red Cell Distribution Width 13.6 % (9.3-17.3); White Blood Count 7.5 T/CUMM (4-12)
[2021-10-10] MEDS: NITROGLYCERIN SL 0.4 MG TABLET SL PRN ×3 (11:34→13:44)
[2021-10-10 11:43] LABS: Calcium 9.4 MG/DL (8.5-10.1); Osmolality,Calculated 287.7 MOS/KG (273-304); Potassium 4.7 MMOL/L (3.5-5.1)
[2021-10-10] MEDS ORDERED: HEPARIN 5,000 UNIT/1 ML VIAL IV STA (14:14)
[2021-10-10] MEDS ORDERED: ONDANSETRON 4 MG/2 ML VIAL IV PRN (14:38)
[2021-10-10] MEDS ORDERED: HEPARIN/NACL 0.9% 2 UNITS/ML 2,000 UNIT/1,000 ML BAG IV ONE (14:39)
[2021-10-10] MEDS ORDERED: INSULIN NPH/REGULAR 70/30 100 UNIT/ML SUBCUT PRN (14:57)
[2021-10-10] MEDS ORDERED: SODIUM CHLORIDE 0.45% 1,000 ML IV SCH (15:00)
[2021-10-10] MEDS ORDERED: diphenhydrAMINE CAP 25 MG CAPSULE PO ONE (15:00)
[2021-10-10] MEDS ORDERED: DIAZEPAM 5 MG TABLET PO ONE (15:00)
[2021-10-10] MEDS ORDERED: HYDROmorphone 1 MG/1 ML SYRINGE ONE (15:06)
[2021-10-10] MEDS ORDERED: MIDAZOLAM 2 MG/2 ML VIAL ONE (15:06)
[2021-10-10] MEDS ORDERED: GLUCAGON 1 MG VIAL IM PRN (16:16)
[2021-10-10] MEDS ORDERED: DEXTROSE 10% 250 ML BAG IV PRN (16:22)
[2021-10-10] MEDS ORDERED: SODIUM CHLORIDE 0.9% 1,000 ML IV SCH (16:30)
[2021-10-10] MEDS ORDERED: TAMSULOSIN 0.4 MG CAPSULE PO SCH (21:00)
[2021-10-10] MEDS ORDERED: FINASTERIDE 5 MG TABLET PO SCH (21:00)
[2021-10-10] MEDS: OMEGA 3 ACID ETHYL ESTERS 1 GM CAPSULE PO SCH (21:31)
[2021-10-10] MEDS: PANTOPRAZOLE 40 MG TABLET PO SCH (21:32)
[2021-10-11 04:58] LABS: Basophils % 0.6 % (0.0-0.8); Eosinophils # 0.1 10*3/uL (0.0-0.87); Eosinophils % 1.7 % (0.00-10.9); Hematocrit 36.9 VOL% (42.0-52.0); Hemoglobin 12.5 GM/DL (14.0-18.0); Immature Granulocytes % 0.3 %; Immature Granulocytes Absolute 0.02 #; Lymphocytes # 1.9 10*3/uL (1.4-4.0); Lymphocytes % 29.5 % (21.2-54.2); Mean Corpuscular HGB Conc 33.9 GM/DL (32-36); Mean Corpuscular Volume 100.3 FL (87-102); Mean Platelet Volume 10.8 FL (9.6-12.0); Monocytes # 0.5 10*3/uL (0.11-0.8); Monocytes % 8.2 % (1.7-12.7); Neutrophils % 59.7 % (38.7-73.9); Platelet Count 166 T/CUMM (130-400); Red Blood Count 3.68 MC/CUMM (3.8-5.5); Red Cell Distribution Width 13.3 % (9.3-17.3); White Blood Count 6.6 T/CUMM (4-12)
[2021-10-11 05:23] LABS: Calcium 8.5 MG/DL (8.5-10.1); Osmolality,Calculated 286.1 MOS/KG (273-304); Potassium 4.2 MMOL/L (3.5-5.1); Risk Ratio 2.62; Thyroid Stimulating Hormone 2.5 uIU/ml (0.358-3.74); VLDL Cholesterol 40.4 MG/DL
[2021-10-11 08:16] VITALS: BP 122/57
[2021-10-11] MEDS ORDERED: ZINC GLUCONATE 50 MG TABLET PO SCH (09:00)
[2021-10-11] MEDS ORDERED: CALCIUM (CARBONATE) 500 MG TABLET PO SCH (09:00)
[2021-10-11] MEDS ORDERED: PREGABALIN 75 MG CAPSULE PO SCH (09:00)
[2021-10-11] MEDS ORDERED: POTASSIUM CHLORIDE 10 MEQ TABLET PO SCH (09:00)
[2021-10-11] MEDS ORDERED: MAGNESIUM OXIDE 400 MG TABLET PO SCH (09:00)
[2021-10-11] MEDS ORDERED: ASPIRIN EC 81 MG TABLET PO SCH (09:00)
[2021-10-11] MEDS ORDERED: ISOSORBIDE MONONITRATE 30 MG TABLET PO SCH (09:00)
[2021-10-11] MEDS ORDERED: amLODIPine 2.5 MG TABLET PO SCH (09:00)
[2021-10-11] MEDS ORDERED: BUMETANIDE 1 MG TABLET PO SCH (09:00)
[2021-10-11] MEDS ORDERED: PSYLLIUM HUSK 0.52 GM PO SCH (09:00)
[2021-10-11] MEDS ORDERED: MULTIVITAMIN (CENTRUM) TABLET PO SCH (09:00)
[2021-10-11] MEDS ORDERED: CHOLECALCIFEROL 1,000 UNIT TABLET PO SCH (09:00)
[2021-10-11] MEDS ORDERED: MULTIVITAMIN (BEROCCA) TABLET PO SCH (09:00)
[2021-10-11] MEDS: PANTOPRAZOLE 40 MG TABLET PO SCH (09:34)
[2021-10-11] MEDS: OMEGA 3 ACID ETHYL ESTERS 1 GM CAPSULE PO SCH (09:35)
== END 2021-10-11 12:30 | disposition home or self-care (01) ==
LOC: N.EDINP 10:54 → N.ED 10:54 → N.TELEN 14:55
PROVIDERS: ADMIT Internal Medicine Cardiovascular Disease; ATTEND Internal Medicine Cardiovascular Disease

== ENCOUNTER 2021-10-13 12:27 | Inpatient (IN) ==
[2021-10-13 13:02] LABS: Basophils % 0.4 % (0.0-0.8); Eosinophils # 0.1 10*3/uL (0.0-0.87); Eosinophils % 1.2 % (0.00-10.9); Hematocrit 40.1 VOL% (42.0-52.0); Hemoglobin 13.5 GM/DL (14.0-18.0); Immature Granulocytes % 0.4 %; Immature Granulocytes Absolute 0.03 #; Lymphocytes # 1.6 10*3/uL (1.4-4.0); Lymphocytes % 20.5 % (21.2-54.2); Mean Corpuscular HGB Conc 33.7 GM/DL (32-36); Mean Corpuscular Volume 99.5 FL (87-102); Monocytes # 0.7 10*3/uL (0.11-0.8); Monocytes % 9.1 % (1.7-12.7); Neutrophils % 68.4 % (38.7-73.9); Platelet Count 177 T/CUMM (130-400); Red Blood Count 4.03 MC/CUMM (3.8-5.5); Red Cell Distribution Width 13.2 % (9.3-17.3); White Blood Count 7.7 T/CUMM (4-12)
[2021-10-13 13:12] LABS: INR 1.2; PT Patient Result 12.6 SECS (10.5-12.0)
[2021-10-13 13:14] LABS: Partial Thromboplastin Time 42.1 SECS (23.7-32.9)
[2021-10-13] MEDS ORDERED: ALUM/MAG/SIMETH/LIDO VISC 1:1 30 ML BOTTLE PO STA (13:20)
[2021-10-13 13:25] LABS: Albumin 3.6 G/DL (3.4-5.0); Bilirubin,Total 0.8 MG/DL (0.20-1.00); Calcium 9.5 MG/DL (8.5-10.1); Osmolality,Calculated 282.4 MOS/KG (273-304); Potassium 4.3 MMOL/L (3.5-5.1); Total Protein 6.9 G/DL (6.4-8.2)
[2021-10-13] MEDS ORDERED: ACETAMINOPHEN 325 MG TABLET PO PRN (14:53)
[2021-10-13] MEDS ORDERED: ONDANSETRON 4 MG/2 ML VIAL IV PRN (14:53)
[2021-10-13] MEDS ORDERED: GLUCAGON 1 MG VIAL IM PRN (14:53)
[2021-10-13] MEDS ORDERED: DEXTROSE 10% 250 ML BAG IV PRN (15:04)
[2021-10-13] MEDS ORDERED: NITROGLYCERIN SL 0.4 MG TABLET SL PRN (15:13)
[2021-10-13] MEDS: INSULIN LISPRO 100 UNIT/ML SUBCUT SCH ×2 (16:42→21:43)
[2021-10-13] MEDS: TAMSULOSIN 0.4 MG CAPSULE PO SCH (21:41)
[2021-10-13] MEDS: SIMVASTATIN 20 MG TABLET PO SCH (21:42)
[2021-10-13] MEDS: HEPARIN 5,000 UNIT/1 ML VIAL SUBCUT SCH (21:42)
[2021-10-13] MEDS: FINASTERIDE 5 MG TABLET PO SCH (21:42)
[2021-10-14 04:52] LABS: Basophils % 0.6 % (0.0-0.8); Eosinophils # 0.2 10*3/uL (0.0-0.87); Eosinophils % 2.7 % (0.00-10.9); Hematocrit 33.7 VOL% (42.0-52.0); Hemoglobin 11.5 GM/DL (14.0-18.0); Immature Granulocytes % 0.2 %; Immature Granulocytes Absolute 0.01 #; Lymphocytes # 2.5 10*3/uL (1.4-4.0); Lymphocytes % 40.2 % (21.2-54.2); Mean Corpuscular HGB Conc 34.1 GM/DL (32-36); Mean Corpuscular Volume 99.4 FL (87-102); Mean Platelet Volume 11.6 FL (9.6-12.0); Monocytes # 0.5 10*3/uL (0.11-0.8); Monocytes % 8.2 % (1.7-12.7); Neutrophils % 48.1 % (38.7-73.9); Platelet Count 162 T/CUMM (130-400); Red Blood Count 3.39 MC/CUMM (3.8-5.5); Red Cell Distribution Width 13.3 % (9.3-17.3); White Blood Count 6.2 T/CUMM (4-12)
[2021-10-14 05:03] LABS: Calcium 8.9 MG/DL (8.5-10.1); Potassium 3.6 MMOL/L (3.5-5.1)
[2021-10-14] MEDS: PANTOPRAZOLE 40 MG TABLET PO SCH (08:06)
[2021-10-14] MEDS: PREGABALIN 75 MG CAPSULE PO SCH (08:07)
[2021-10-14] MEDS: amLODIPine 2.5 MG TABLET PO SCH (08:07)
[2021-10-14] MEDS: CHOLECALCIFEROL 1,000 UNIT TABLET PO SCH (08:08)
[2021-10-14] MEDS: ASPIRIN EC 81 MG TABLET PO SCH (08:08)
[2021-10-14] MEDS: HEPARIN 5,000 UNIT/1 ML VIAL SUBCUT SCH ×2 (08:12→20:57)
[2021-10-14] MEDS: SODIUM CHLORIDE 0.45% 1,000 ML IV SCH ×2 (08:12→20:04)
[2021-10-14] MEDS: INSULIN LISPRO 100 UNIT/ML SUBCUT SCH ×4 (08:14→21:44)
[2021-10-14] MEDS: BUMETANIDE 1 MG TABLET PO SCH (08:36)
[2021-10-14] MEDS: FEXOFENADINE 180 MG TABLET PO SCH (08:36)
[2021-10-14] MEDS: METOPROLOL SUCCINATE XL 25 MG TABLET PO SCH (08:36)
[2021-10-14] MEDS: ISOSORBIDE MONONITRATE 60 MG TABLET PO SCH (08:36)
[2021-10-14] MEDS ORDERED: INSULIN NPH/REGULAR 70/30 100 UNIT/ML SUBCUT SCH (09:00)
[2021-10-14] MEDS: INSULIN ASPART PROTAMINE/ASPART 70/30 100 UNIT/ML SUBCUT SCH (15:34)
[2021-10-14] MEDS: FINASTERIDE 5 MG TABLET PO SCH (20:57)
[2021-10-14] MEDS: SIMVASTATIN 20 MG TABLET PO SCH (20:57)
[2021-10-14] MEDS: TAMSULOSIN 0.4 MG CAPSULE PO SCH (20:58)
[2021-10-15 05:28] LABS: Basophils % 0.7 % (0.0-0.8); Eosinophils # 0.2 10*3/uL (0.0-0.87); Eosinophils % 2.9 % (0.00-10.9); Hemoglobin 11.1 GM/DL (14.0-18.0); Immature Granulocytes % 0.2 %; Immature Granulocytes Absolute 0.01 #; Lymphocytes # 2.6 10*3/uL (1.4-4.0); Lymphocytes % 45.1 % (21.2-54.2); Mean Corpuscular HGB Conc 33.6 GM/DL (32-36); Mean Corpuscular Volume 100.3 FL (87-102); Mean Platelet Volume 11.1 FL (9.6-12.0); Monocytes # 0.5 10*3/uL (0.11-0.8); Monocytes % 9.4 % (1.7-12.7); Neutrophils % 41.7 % (38.7-73.9); Platelet Count 160 T/CUMM (130-400); Red Blood Count 3.29 MC/CUMM (3.8-5.5); Red Cell Distribution Width 13.5 % (9.3-17.3); White Blood Count 5.8 T/CUMM (4-12)
[2021-10-15 05:49] LABS: Calcium 8.7 MG/DL (8.5-10.1); Osmolality,Calculated 283.1 MOS/KG (273-304)
[2021-10-15] MEDS: INSULIN LISPRO 100 UNIT/ML SUBCUT SCH ×4 (06:59→20:26)
[2021-10-15] MEDS: INSULIN ASPART PROTAMINE/ASPART 70/30 100 UNIT/ML SUBCUT SCH ×2 (07:25→15:37)
[2021-10-15] MEDS ORDERED: LACTATED RINGERS 1,000 ML IV SCH (08:00)
[2021-10-15] MEDS: ASPIRIN EC 81 MG TABLET PO SCH (09:17)
[2021-10-15] MEDS: FEXOFENADINE 180 MG TABLET PO SCH (09:17)
[2021-10-15] MEDS: METOPROLOL SUCCINATE XL 25 MG TABLET PO SCH (09:18)
[2021-10-15] MEDS: amLODIPine 2.5 MG TABLET PO SCH (09:18)
[2021-10-15] MEDS: ISOSORBIDE MONONITRATE 60 MG TABLET PO SCH (09:18)
[2021-10-15] MEDS: PREGABALIN 75 MG CAPSULE PO SCH (09:18)
[2021-10-15] MEDS: BUMETANIDE 1 MG TABLET PO SCH (09:18)
[2021-10-15] MEDS: PANTOPRAZOLE 40 MG TABLET PO SCH (09:18)
[2021-10-15] MEDS: CHOLECALCIFEROL 1,000 UNIT TABLET PO SCH (09:19)
[2021-10-15] MEDS: SODIUM CHLORIDE 0.45% 1,000 ML IV SCH (10:53)
[2021-10-15] MEDS ORDERED: propofoL 200 MG/20 ML VIAL IV ONE (12:30)
[2021-10-15] MEDS ORDERED: LIDOCAINE 2% 5 ML VIAL ONE (12:30)
[2021-10-15] MEDS: SIMVASTATIN 20 MG TABLET PO SCH (20:26)
[2021-10-15] MEDS: TAMSULOSIN 0.4 MG CAPSULE PO SCH (20:26)
[2021-10-15] MEDS: FINASTERIDE 5 MG TABLET PO SCH (20:26)
[2021-10-16 04:53] LABS: Basophils % 0.5 % (0.0-0.8); Eosinophils # 0.1 10*3/uL (0.0-0.87); Eosinophils % 1.9 % (0.00-10.9); Hematocrit 35.3 VOL% (42.0-52.0); Hemoglobin 11.9 GM/DL (14.0-18.0); Immature Granulocytes % 0.2 %; Immature Granulocytes Absolute 0.01 #; Lymphocytes # 2.2 10*3/uL (1.4-4.0); Lymphocytes % 38.1 % (21.2-54.2); Mean Corpuscular HGB Conc 33.7 GM/DL (32-36); Mean Corpuscular Volume 100.3 FL (87-102); Mean Platelet Volume 11.2 FL (9.6-12.0); Monocytes # 0.6 10*3/uL (0.11-0.8); Monocytes % 9.6 % (1.7-12.7); Neutrophils % 49.7 % (38.7-73.9); Platelet Count 171 T/CUMM (130-400); Red Blood Count 3.52 MC/CUMM (3.8-5.5); Red Cell Distribution Width 13.6 % (9.3-17.3); White Blood Count 5.8 T/CUMM (4-12)
[2021-10-16 05:16] LABS: Calcium 8.8 MG/DL (8.5-10.1); Osmolality,Calculated 285.5 MOS/KG (273-304); Potassium 4.2 MMOL/L (3.5-5.1)
[2021-10-16 07:20] VITALS: BP 132/84
[2021-10-16] MEDS: PREGABALIN 75 MG CAPSULE PO SCH (08:08)
[2021-10-16] MEDS: METOPROLOL SUCCINATE XL 25 MG TABLET PO SCH (08:09)
[2021-10-16] MEDS: BUMETANIDE 1 MG TABLET PO SCH (08:09)
[2021-10-16] MEDS: PANTOPRAZOLE 40 MG TABLET PO SCH (08:10)
[2021-10-16] MEDS: CHOLECALCIFEROL 1,000 UNIT TABLET PO SCH (08:10)
[2021-10-16] MEDS: ASPIRIN EC 81 MG TABLET PO SCH (08:10)
[2021-10-16] MEDS: amLODIPine 2.5 MG TABLET PO SCH (08:10)
[2021-10-16] MEDS: ISOSORBIDE MONONITRATE 60 MG TABLET PO SCH (08:10)
[2021-10-16] MEDS: FEXOFENADINE 180 MG TABLET PO SCH (08:10)
[2021-10-16] MEDS: INSULIN LISPRO 100 UNIT/ML SUBCUT SCH (08:15)
[2021-10-16] MEDS: INSULIN ASPART PROTAMINE/ASPART 70/30 100 UNIT/ML SUBCUT SCH (08:16)
== END 2021-10-16 11:14 | disposition home or self-care (01) | DRG 392 ==
LOC: N.ED 12:27 → N.EDINP 14:11 → SUATTDRO 14:11 → N.3E 15:59
PROVIDERS: ADMIT Internal Medicine; ATTEND Family Medicine